=== PATIENT | male | born 1955 | race Caucasian/White ===

== ENCOUNTER 2023-07-04 09:27 | Outpatient (CLI) | payer MEDICARE, SELFPAY | END 2023-07-04 09:28 | disposition home or self-care (01) | LOC: NFLDREF 07-06 11:46 | PROVIDERS: PCP Family Medicine; Referring Provider Family Medicine; Visit Provider Family Medicine | DX: Z00.00 Encounter for general adult medical examination without abnormal findings (principal); E78.00 Pure hypercholesterolemia, unspecified; Z12.5 Encounter for screening for malignant neoplasm of prostate | CPT/HCPCS: 80053; 80061; G0103 ==

== ENCOUNTER 2024-07-02 07:56 | Outpatient (CLI) | payer MEDICARE, SELFPAY | END 2024-07-02 07:57 | disposition home or self-care (01) | LOC: NFLDREF 07-04 13:50 | PROVIDERS: PCP Family Medicine; Referring Provider Family Medicine; Visit Provider Family Medicine | DX: E78.00 Pure hypercholesterolemia, unspecified (principal); Z12.5 Encounter for screening for malignant neoplasm of prostate | CPT/HCPCS: 80053; 80061; G0103 ==

== ENCOUNTER 2024-09-04 08:01 | Outpatient (CLI) | payer MEDICARE, SELFPAY | END 2024-09-04 08:02 | disposition home or self-care (01) | LOC: NFLDREF 09-11 03:29 | PROVIDERS: PCP Family Medicine; Referring Provider Family Medicine; Visit Provider Family Medicine | DX: R97.20 Elevated prostate specific antigen [PSA] (principal); Z12.5 Encounter for screening for malignant neoplasm of prostate | CPT/HCPCS: 84153; 84154 ==